=== PATIENT | male | born 1955 ===

== ENCOUNTER 2017-03-14 06:22 | Day surgery (SDC) | payer OTHER ==
[2017-03-08 10:56] VITALS: BMI 30.2
[2017-03-14] MEDS ORDERED: Propofol 10 mg/ml Inj (20 ML) ONE (08:12)
[2017-03-14] MEDS ORDERED: Lactated Ringer's 500 ML IV SCH (08:30)
[2017-03-14 09:04] VITALS: TEMP 97.8
[2017-03-14 09:32] VITALS: O2SAT 98
[2017-03-14 10:34] VITALS: BP 112/72; PULSE 68; RESP 17
== END 2017-03-14 10:30 | disposition home or self-care (01) ==
LOC: C.ENDO 06:22
PROVIDERS: ATTEND Internal Medicine Gastroenterology
DX: Z86.010 Personal history of colon polyps (principal); D12.4 Benign neoplasm of descending colon; D12.3 Benign neoplasm of transverse colon; K64.1 Second degree hemorrhoids; K57.90 Diverticulosis of intestine, part unspecified, without perforation or abscess without bleeding
CPT/HCPCS: 45380; 45385; 82948; 88305; J2001; J2704; J7120

== ENCOUNTER 2018-06-20 06:08 | Day surgery (SDC) | payer MEDICARE ==
[2018-05-22 10:53] VITALS: BMI 30.7
[2018-06-20] MEDS ORDERED: ceFAZolin IV 1 gm in Dextrose 2 GM/100 ML BAG IVPB ONE (07:01)
[2018-06-20] MEDS ORDERED: Lidocaine/Epinephrine 1% 1:100000 10 ML IJ ONE (07:01)
[2018-06-20] MEDS ORDERED: Bupivacaine 0.25% 20 ML INJ IJ ONE (07:02)
[2018-06-20] MEDS ORDERED: Propofol 10 mg/ml 1,000 MG/100 ML VIAL ONE (08:25)
[2018-06-20] MEDS ORDERED: Midazolam 2 MG/2 ML VIAL ONE (08:27)
[2018-06-20] MEDS ORDERED: Oxycodone/Acetaminophen 5/325 mg Tab PO PRN (10:11)
--- NOTE | 2018-06-20 10:15 | PCM.SURG1 ---
Surgeon's Initial Post Op Note - Surgeon's Notes Surgeon: Dr. Husain Manager Contracting: Mariola Church, PGY2; Shasta Garcia, OMS3 Type of Anesthesia: IV Sedation, Local Pre-Operative Diagnosis: Subcutaneous mass of the left upper back, subcutaneous mass of the mid back Operative Findings: large fatty tumor of the left upper back, no palpable residual mass tissue, adequate hemostasis obtained with electrocautery and press ure. Small fibrous tissue cyst of the mid/lower back, no palpable residual mass, adequate hemostasis obtained with electrocautery and pressure Post-Operative Diagnosis: same Operation Performed: Excision of left upper back subcutaneous mass with complex closure. Excision of middle lower back subcutaneous mass with complex closure Specimen/Specimens Removed: left upper back mass with skin. middle lower back mass with skin Estimated Blood Loss: EBL {In ML}: 5 Blood Products Given: N/A Drains Used: No Drains Post-Op Condition: Fair Date of Surgery/Procedure: 06/20/18 Time of Surgery/Procedure: 08:30
[2018-06-20 12:21] VITALS: BP 126/72; PULSE 68; RESP 16; TEMP 97.9; O2SAT 95
--- NOTE | 2018-06-20 21:34 | OP ---
PROCEDURE DATE: 06/20/2018 PREOPERATIVE DIAGNOSES: 1. Sebaceous cyst of the mid back. 2. Large lipoma of left neck and back area. 3. Morbid obesity. POSTOPERATIVE DIAGNOSES: 1. Sebaceous cyst of the mid back. 2. Large lipoma of left neck and back area. 3. Morbid obesity. PROCEDURES PERFORMED: 1. Excision of the sebaceous cyst of the mid back approximately 3 x 2 cm size. 2. Excision of large lipoma of left upper back and neck area, approximately 6 x 4 cm size. 3. Excision of the redundant skin of the neck and back area, approximately 5 x 2 cm size. 4. Layered closure of the neck and back wound 5 x 3 x 2 cm size. 5. Layered closure of the wound of the mid back 3 x 2 x 2 cm size. ANESTHESIA: Local anesthesia plus sedation. ESTIMATED BLOOD LOSS: Around 10 mL. DRAINS: None. PATHOLOGY: 1. Sebaceous cyst and content was sent for the pathology. 2. Lipoma of the neck and back area was sent for the pathology. COMPLICATIONS: None. INTRAOPERATIVE FINDINGS: The patient had approximately 3 x 2 cm sebaceous cyst of the mid back and approximately 6 x 4 cm irregular lipoma of the left upper neck and back area. DESCRIPTION OF PROCEDURE: On intraoperative steps, this 63 old male who was diagnosed with sebaceous cyst of the mid back and lipoma of the left upper back and neck area and the patient was consented for the excision of the both, brought to the OR, placed supine on the operating table. The patient was placed in the right lateral position. Sedation was given. The neck and the back area was prepped and draped in usual sterile fashion. The local anesthesia was injected, first in the mid back area. The elliptical incision was made, upper and lower flap was created. The excision was carried down deep up to the underlying fascia and the muscles and sebaceous cyst was completely excised and it was sent off the table for the pathology. Now, the hemostasis was achieved and wound was closed in multiple layers. The upper flap to the underlying fascia, lower flap to the underlying fascia. The deeper subcu with 3-0 Vicryl, superficial subcu with 3-0 Vicryl, skin with 4-0 Monocryl and dry sterile dressing was applied. The patient tolerated the procedure well up to this part and now the local anesthesia was injected in the neck and upper back and the upper and lower flap was created. The lipoma appeared to be intrafascial as well as on top of the muscles and the superficial fascia was excised and the lipoma was identified. The lipoma was completely excised and it was sent off the table for pathology. Now, due to the large cavity, the upper flap skin was excised of approximately 5 x 2 cm size and after that the multilayer closure of the wound was done. The upper flap was sutured to the underlying fascia, lower flap was sutured to the underlying fascia, deeper subcu with 2-0 Vicryl, superficial subcu with a 3-0 Vicryl, skin with 4-0 Monocryl and dry sterile dressing was applied. The patient tolerated the procedure well. Count of instrument and gauze was correct. There was no apparent complication. The patient was reversed from sedation and sent to the postanesthesia care in stable condition. Gino Husain MD
== END 2018-06-20 12:54 | disposition home or self-care (01) ==
LOC: C.SDS 06:08
PROVIDERS: ATTEND Surgery Surgical Critical Care
DX: L72.3 Sebaceous cyst (principal); D17.1 Benign lipomatous neoplasm of skin and subcutaneous tissue of trunk
CPT/HCPCS: 11404; 12035; 21931; 88305; J0690; J2250; J3010